=== PATIENT | female | born 1960 | race Caucasian/White ===

== ENCOUNTER 2020-11-03 14:41 | Emergency (ER) | payer BC, SELFPAY ==
[2020-11-03 14:42] VITALS: BP 95/53; PULSE 107; RESP 17; TEMP 36.4; O2SAT 98; BMI 34.0
--- NOTE | 2020-11-03 15:19 | ED.DCSUM_ITS ---
History of Present Illness Chief Complaint: Cough Informant: Patient Onset: Days - 6 days Context: Gradual Onset Current Severity: Mild Maximum Severity: Moderate Narrative: Patient presents with continued cough and shortness of breath. She was initially seen at the urgent care at [facility] on the . She became ill that day. Her had Covid at the time. Patient states that her Covid test came back negative but she was diagnosed with pneumonia based on her x-ray. She was placed on antibiotics and states she has not gotten any significant improvement. She reports chills but no fever. She reports loss of smell and taste. Past Medical History - Allergies and Home Meds Allergies/Adverse Reactions: Allergies No Known Allergies Allergy (Verified 11/03/20 14:46) Primary Care Physician: Earl Pagan MD [NON-STAFF] - Past Medical History: None Lives: Spouse/ Significant Other Smoking Status: Never smoker Review of Systems General: Reports: Chills. Denies: Fever Eyes: Denies: Visual changes - bilaterally ENT: Denies: Bilateral ear pain Cardiovascular: Reports: Chest pain Respiratory: Reports: Dyspnea, Cough. Denies: Sputum Gastrointestinal: Reports: Nausea, Diarrhea. Denies: Abdominal pain, Vomiting Genitourinary: Denies: Dysuria Musculoskeletal: Denies: Extremity Pain Skin: Denies: Rash Neurological: Denies: Headache Hematologic: Denies: Easy bruising, Easy bleeding Allergy: Denies: Uticaria Physical Exam Vital Signs/Narrative: Vital Signs Temp Pulse Resp BP Pulse Ox 11/03/20 14:42 97.5 F L 107 H 17 95/53 L 98 Inital Vital Signs reviewed: Yes General: Well nourished, Well developed Head: Normocephalic ENT: Moist mucous membranes Neck: Supple Cardiovascular: Regular rate, Regular rhythm Respiratory: No distress, CTA bilaterally Abdomen: Soft, Nontender Extremities: Nontender Skin: Normal color Neurological: Alert, Oriented x3 Psychological: Normal affect Diagnostic/Tx/Re-eval Chest X-Ray - ED: 1 View, Read by ED Physician, Normal, Heart, Lungs, Mediastinum, No Infiltrates - EKG Initial EKG Interpretation: Sinus Rhythm - Sinus at 99 with no acute ischemia. - Medical Decision Making Patient was given Zofran for mild nausea. On repeat evaluation she is resting comfortably in bed. Her O2 sat is 96% on room air. Per my review her chest x- ray reveals no focal infiltrate. This was relayed to her. Her blood work at this point is unremarkable. Lactic acid and pro calcitonin are still pending. Covid PCR is also pending. At this time patient is just requesting discharge so she can go home. She does not wish to wait for the test results. She does unde rstand that supportive care is appropriate at this time. She has been on prednisone. She will be given a prescription for Tessalon Perles along with Zofran. If her Covid PCR is positive she will be called and notified. ED Disposition - Plan for ED Patient: Disposition: Home or Assisted Living Diagnosis: Viral syndrome Instructions: ED Viral Syndrome (Adult) Prescriptions: Benzonatate [Tessalon Perle] 200 mg PO TID PRN PRN #20 cap PRN Reason: Cough Transmission Status: Pending to [id number] Ondansetron [Zofran Odt] 4 mg PO Q8H PRN PRN #10 tab PRN Reason: Nausea Transmission Status: Pending to [id number] Referrals: Earl Pagan MD [NON-STAFF] -
[2020-11-03 15:38] VITALS: O2SAT 98
[2020-11-03 15:42] VITALS: BP 156/87; PULSE 104; RESP 22; TEMP 36.6; O2SAT 94
[2020-11-03] MEDS: Ondansetron 4 MG/2 ML Vial IV (15:50)
[2020-11-03 16:00] VITALS: BP 156/87; PULSE 101; RESP 22; TEMP 36.6; O2SAT 94
--- NOTE | 2020-11-03 16:05 | RAD_ITS ---
STUDY: X-RAY CHEST REASON FOR EXAM: Female, 59 years old. sent by urgent care for cough TECHNIQUE: AP portable COMPARISON: None. FINDINGS: There appears to be very subtle interstitial thickening in the lower lobes of uncertain chronicity.. There is no demonstrated pleural abnormality. Normal size heart. Normal mediastinum and jeffy. Normal visualized pulmonary arteries. Normal visualized aortic arch and descending thoracic aorta. Normal visualized thoracic spine. Normal visualized ribs, clavicles, and shoulders. There is no demonstrated abnormality of the visualized soft tissue structures of the upper abdomen. RAD/Chest 1 View (Portable) IMPRESSION: Minor bibasilar interstitial thickening of uncertain chronicity. No focal infiltration. Electronically Signed: Kilo Hassan MD at 16:40 EST , Service support ,
[2020-11-03 16:13] LABS: Absolute Lymphocyte Count 2.38 X10^3/uL (0.83-4.51); Absolute Neutrophil Count 8.5 X10^3/uL (2.0-7.7); Basophil# 0.04 X10^3/uL; Basophil% 0.3 % (0-1); Eosinophil# 0.11 X10^3/uL; Eosinophils% 0.9 % (0-5); Hemoglobin 13.9 g/dL (12.0-15.0); Lymphocyte # 2.38 X10^3/ul (4.0); Lymphocyte % 19.9 % (19-41); Mean Corp Hgb Conc 33.1 g/dL (32-36); Mean Corpuscular Hgb 28.8 pg (27.0-32.0); Mean Platelet Vol. 8.8 fl (6.2-12.0); Monocyte# 0.78 X10^3/uL; Monocyte% 6.5 % (0-10); NRBC Flagged by Analyzer 0 % (0-5); Neutrophil % 71.2 % (47-70); Platelet Count 280 K/mm3 (150-450); RBC Distribution Width CV 13.9 % (11.6-14.6); Red Blood Count 4.83 M/mm3 (4.2-5.4)
[2020-11-03 16:28] LABS: ALB/GLOB Ratio 0.9 RATIO (0.9-2.4); AST(SGOT) 12 U/L (15-37); Alanine Aminotransfer ALT/SGPT 27 U/L (13-56); Albumin, Serum 3.5 g/dL (3.2-5.0); Alkaline Phosphatase 95 U/L (45-117); Anion Gap 7 (5-15); BUN 14 mg/dL (7-18); BUN/Creat Ratio 20.9 RATIO (10-20); Calcium,Total 8.8 mg/dL (8.5-10.1); Chloride 107 mmol/L (98-107); Creatinine, Serum 0.67 mg/dL (0.55-1.02); EST Glomerular Filtration Rate 95 mL/min (>60); Est Glom Filt Rate - Afr Amer 115 mL/min (>60); Estimated Creatinine Clearance 73.86 ml/min; Globulin 3.8 g/dL (2.2-4.2); Glucose 91 mg/dL (74-106); Potassium 3.5 mmol/L (3.5-5.1); Protein, Total 7.3 g/dL (6.4-8.2); Sodium Level 141 mmol/L (136-145)
[2020-11-03 16:48] LABS: D-Dimer Quantitative (DVT/PE) 0.46 FEU/ug/m (0.27-0.49)
[2020-11-03 16:50] LABS: Lactic Acid 1.9 mmol/L (0.4-1.9)
[2020-11-03 16:56] VITALS: BP 151/97; PULSE 101; RESP 20; O2SAT 94
[2020-11-03 19:34] LABS: Procalcitonin < 0.04 ng/mL (0.00-0.09)
== END 2020-11-03 16:57 | disposition home or self-care (01) ==
PROVIDERS: Emergency Provider Emergency Medicine
DX: U07.1 COVID-19 (principal); Z87.01 Personal history of pneumonia (recurrent)
CPT/HCPCS: 71045; 80053; 83605; 84145; 85025; 85379; 87040; 87635; 93005; 96374; 99284; A4216; J2405; U0002